=== PATIENT | female | born 1965 | race Caucasian/White ===

== ENCOUNTER 2021-03-01 12:41 | Emergency (ER) | payer OTHER ==
[~2021-03-01] VITALS: Ht 157.5 cm; Wt 120.0 kg
--- NOTE | 2021-03-01 12:50 | NUR ---
PT BIB [facility]. PT CO NEAR SYNCOPAL EVENTS WHEN LAYING FLAT X3 SINCE SATURDAY. PT WENT TO URGENT CARE TODAY AND WHILE ATTEMPTING TO LAY ON GURNEY, PT GOT DIZZY, NAUSEOUS AND FELT LIKE SHE WAS GOING TO PASS OUT. PT DENIES ANY CP, SOB, HEADACHE, VOMITING OR FEVER.
[2021-03-01] MEDS ORDERED: MECLIZINE CHEWABLE 25 MG TAB ONE (13:18)
[2021-03-01] MEDS ORDERED: MECLIZINE CHEWABLE 25 MG TAB PO ONE (13:30)
[2021-03-01] MEDS ORDERED: SODIUM CHLORIDE FLUSH 10ML SYR IVF ONE (13:30)
[2021-03-01] MEDS ORDERED: SODIUM CHLORIDE 0.9% 1,000ML IVBOLUS ONE (13:30)
[2021-03-01] MEDS ORDERED: PLEASE ENTER ALLERGIES MC SCH (14:00)
[2021-03-01 14:10] VITALS: BP 140/67
--- NOTE | 2021-03-01 14:11 | NUR ---
TASK RN NOTE: PIV PLACED. NS INFUSING PER EMAR. ALL MONITORS IN PLACE, PT IS SINUS TACH RATE 90'S ON RES COUNSELOR WITH NO ECTOPY. PT A&O, RESPS EVEN AND UNLABORED. NADN. VS UPDATED. LABS DRAWN WITH PIV START, SENT TO LAB BY PRIMARY RN.
[2021-03-01 14:20] LABS: BASOPHILS % (AUTO) 1 % (0-1); EOSINOPHILS % (AUTO) 0 % (1-7); LYMPHOCYTES % (AUTO) 18 % (22-44); MEAN CORPUSCULAR HEMOGLOBIN 26.6 pg (27.0-34.8); MEAN CORPUSCULAR HGB CONC 32.9 g/dL (32.4-35.8); MEAN PLATELET VOLUME 8.2 fL (7.4-10.4); MONOCYTES % (AUTO) 5 % (2-9); NEUTROPHILS % (AUTO) 76 % (42-75); PLATELET COUNT 261 x10^3/uL (130-400); RED BLOOD COUNT 5.82 x10^6/uL (3.82-5.3); RED CELL DISTRIBUTION WIDTH 15.5 % (9.6-15.2)
[2021-03-01 14:22] LABS: MD NO
[2021-03-01 14:27] LABS: ALBUMIN 3.6 g/dL (3.4-5.0); ANION GAP 3 mmol/L (5-15); CALCIUM 9.6 mg/dL (8.5-10.1); CHLORIDE 109 mmol/L (98-107); CREATININE 0.61 mg/dL (0.55-1.02)
--- NOTE | 2021-03-01 15:37 | NUR ---
DISCHARGE INSTRUCTIONS REVIEWED WITH PT. ALL QUESTIONS ANSWERED AT THIS TIME.
== END 2021-03-01 15:39 | disposition home or self-care (01) ==
LOC: ED 15:29
DX: R42 Dizziness and giddiness (principal); R11.0 Nausea
CPT/HCPCS: 36415; 80048; 82040; 85025; 93005; 96360; 99284; J7030